=== PATIENT | male | born 1985 | race Caucasian/White ===

== ENCOUNTER 2016-06-05 14:50 | Emergency (ER) | payer OTHER ==
[~2016-06-05] VITALS: Ht 180.3 cm; Wt 102.6 kg
[~2016-06-05 14:50] MED LIST: ADVAIR HFA120 INHAL1 IH; ALBUTEROL SULF8.5 GM IH; CEFTIN500 MG PO; FLEXERIL10 MG PO; INDOCIN25 MG PO; KEFLEX500 MG PO; LYRICA; NAPROSYN500 MG PO; NICOTINE PATCH1 EAC2 TD; NORCO 5/3251 TABLET PO; NORCO 7.5/321 TABLET PO; NYSTATIN15 GM TP; OXYCODONE10 MG PO; PERCOCET 10-651 EACH PO; PERCOCET 7.5-51 EACH PO; PREDNISONE50 MG PO; VENTOLIN HFA18 GM IH; ZOVIRAX800 M1 PO
[2016-06-05 15:18] LABS: HEMATOCRIT 43.5 % (38.0-50.0); MCH 27.9 PG (29.0-34.0); MCHC 32.4 G/DL (30.0-36.0); MCV 86.1 FL (86-99); MEAN PLAT.VOLUME 9.5 uM^3 (9.0-12.4); PLATELET COUNT 263 K/uL (156-360); RBC DIS.WIDTH-CV 13.7 % (11.8-14.6); RBC DIS.WIDTH-SD 43.5 % (39-53); RED BLOOD COUNT 5.05 M/uL (4.00-5.50); WHITE BLOOD COUNT 9.5 K/uL (4.1-10.2)
[2016-06-05 15:28] LABS: CHLORIDE 110 mEq/L (99-109); POTASSIUM 4.4 mEq/L (3.7-5.4); SODIUM 142 mEq/L (136-147)
[2016-06-05 15:30] LABS: GLUCOSE 90 mg/dL (70-99)
[2016-06-05 15:31] LABS: ANION GAP 9 MEQ/L (2-14)
[2016-06-05 15:34] LABS: GFR ESTIMATE (CALCULATED) > 59 mL/min/
[2016-06-05 15:35] LABS: UREA NITROGEN (BUN) 13 mg/dL (9-23)
[2016-06-05] MEDS ORDERED: VENTOLIN HFA18 GM IH (15:57)
[2016-06-05] MEDS ORDERED: ZITHROMAX250 MG PO (15:57)
[2016-06-05] MEDS ORDERED: PREDNISONE20 MG PO (15:57)
[2016-06-05 16:18] VITALS: BP 124/82
== END 2016-06-05 16:30 | disposition home or self-care (01) ==
LOC: EME 14:50
PROVIDERS: Nurse Practitioner Family
DX: J40 Bronchitis, not specified as acute or chronic (principal); F17.200 Nicotine dependence, unspecified, uncomplicated
CPT/HCPCS: 71020; 80048; 85027; 94640; 99281; 99284; J7512

== ENCOUNTER 2017-04-19 04:47 | Emergency (ER) | payer OTHER ==
[~2017-04-19] VITALS: Ht 180.3 cm; Wt 104.5 kg
[~2017-04-19 04:47] MED LIST changes: +PREDNISONE20 MG PO; +ZITHROMAX250 MG PO
[2017-04-19 06:02] LABS: APPEARANCE CLEAR ((CLEAR)); BILIRUBIN NEGATIVE; BLOOD NEGATIVE; COLOR YELLOW ((YELLOW)); GLUCOSE (STRIP) NEGATIVE; KETONES NEGATIVE; LEUKOCYTES NEGATIVE; NITRITE NEGATIVE; PROTEIN (STRIP) NEGATIVE; SPECIFIC GRAVITY 1.016 (1.000-1.030); UCUL ADDED? NO; UROBILINOGEN 0.2 MG/DL (0.2-1.0)
[2017-04-19 06:10] LABS: AMPHETAMINE NEGATIVE (500 ng/mL); BARBITURATES NEGATIVE (200 ng/mL); BENZODIAZEPINES NEGATIVE (150 ng/mL); BUPRENORPHINE NEGATIVE (10 ng/mL); COCAINE PRESUMPTIVE POSITIVE (150 ng/mL); METHADONE NEGATIVE (200 ng/mL); METHAMPHETAMINE NEGATIVE (500 ng/mL); OPIATES (MORPHINE) NEGATIVE (100 ng/mL); OXYCODONE NEGATIVE (100 ng/mL); PHENCYCLIDINE NEGATIVE (25 ng/mL); PROPOXYPHENE NEGATIVE (300 ng/mL); THC CANNABINOIDS PRESUMPTIVE POSITIVE (50 ng/mL); TRICYCLIC ANTIDEPRESSANTS NEGATIVE (300 ng/mL)
[2017-04-19] MEDS ORDERED: ZANAFLEX2 MG PO (06:13)
[2017-04-19] MEDS ORDERED: NORCO 5/3251 TABLET PO (06:13)
[2017-04-19] MEDS ORDERED: LIDODERM 5% P1 PATCH TD (06:13)
[2017-04-19 07:23] LABS: HEMOGLOBIN 13.1 G/DL (12.5-16.6); MCH 29.2 PG (29.0-34.0); MCHC 33.6 G/DL (30.0-36.0); MCV 86.9 FL (86-99); PLATELET COUNT 195 K/uL (156-360); RBC DIS.WIDTH-CV 14.8 % (11.8-14.6); RBC DIS.WIDTH-SD 47.4 % (39-53); RED BLOOD COUNT 4.49 M/uL (4.00-5.50); WHITE BLOOD COUNT 12.5 K/uL (4.1-10.2)
[2017-04-19 07:52] LABS: C-REACTIVE PROTEIN 66.9 MG/L (0-10); CHLORIDE 103 MEQ/L (99-109); CREATININE 0.8 MG/DL (0.6-1.3); GFR ESTIMATE (CALCULATED) > 59 mL/min/ (58.99-99999); GLUCOSE 118 mg/dL (70-99); POTASSIUM 4.3 MEQ/L (3.7-5.4); SODIUM 135 MEQ/L (136-147); UREA NITROGEN (BUN) 12 mg/dL (9-23)
[2017-04-19 08:17] LABS: ERTH.SED.RATE 22 MM/HR (0-15)
[2017-04-19 11:30] VITALS: BP 149/90
[2017-04-20] MEDS ORDERED: TYLENOL PM EX-1 EACH PO (17:30)
== END 2017-04-19 11:48 | disposition home or self-care (01) ==
LOC: EME → EDBD 04:47 → EME 11:48
PROVIDERS: Emergency Medicine
DX: M51.36 Other intervertebral disc degeneration, lumbar region (principal); M43.16 Spondylolisthesis, lumbar region; M48.061 Spinal stenosis, lumbar region without neurogenic claudication; M51.26 Other intervertebral disc displacement, lumbar region; F14.90 Cocaine use, unspecified, uncomplicated; F12.90 Cannabis use, unspecified, uncomplicated; M25.551 Pain in right hip; F17.200 Nicotine dependence, unspecified, uncomplicated
CPT/HCPCS: 70140; 72131; 72158; 80048; 81003; 83605; 84999; 85027; 85652; 86140; 87040; 87077; 87186; 87801; J0696; J3010

== ENCOUNTER 2017-04-20 15:16 | Inpatient (IN) | payer OTHER ==
[~2017-04-20] VITALS: Ht 180.3 cm; Wt 97.5 kg
[~2017-04-20 15:16] MED LIST changes: +LIDODERM 5% P1 PATCH TD; +ZANAFLEX2 MG PO
[2017-04-20] MEDS ORDERED: TYLENOL PM EX-1 EACH PO (17:30)
[2017-04-20 17:45] LABS: INTER. NORMALIZED RATIO 1.3
[2017-04-20 17:46] LABS: CHLORIDE 100 mEq/L (99-109); POTASSIUM 4.2 mEq/L (3.7-5.4); SODIUM 136 mEq/L (136-147)
[2017-04-20 17:47] LABS: PTT 30.5 SEC (25-37)
[2017-04-20 17:48] LABS: GLUCOSE 115 mg/dL (70-99); TOTAL PROTEIN 7.7 g/dL (6.4-8.3)
[2017-04-20 17:49] LABS: BASOPHIL (%) 0.2 % (0-1); EOSINOPHIL (%) 0 % (0-5); HEMATOCRIT 46.1 % (38.0-50.0); HEMOGLOBIN 15.4 G/DL (12.5-16.6); IMMATURE GRANULOCYTE (%) 0.5 % (0.0-0.7); LYMPHOCYTE (%) 4.9 % (15-42); LYMPHOCYTE COUNT 0.8 K/uL (1.0-2.8); MCH 28.6 PG (29.0-34.0); MCHC 33.4 G/DL (30.0-36.0); MCV 85.7 FL (86-99); MONOCYTE (%) 7.4 % (3-12); MONOCYTE COUNT 1.3 K/uL (0-0.8); NEUTROPHIL COUNT 14.8 K/uL (1.8-6.4); PLATELET COUNT 179 K/uL (156-360); RBC DIS.WIDTH-CV 14.9 % (11.8-14.6); RBC DIS.WIDTH-SD 46.9 % (39-53); RED BLOOD COUNT 5.38 M/uL (4.00-5.50); WHITE BLOOD COUNT 17.1 K/uL (4.1-10.2)
[2017-04-20 17:50] LABS: TOTAL BILIRUBIN 0.7 mg/dL (0.0-1.0)
[2017-04-20 17:52] LABS: ALKALINE PHOSPHATASE 73 IU/L (3-129); CREATININE 0.9 mg/dL (0.6-1.3); GFR ESTIMATE (CALCULATED) > 59 mL/min/ (58.99-99999)
[2017-04-20 17:53] LABS: AST (GOT) 11 IU/L (2-34); UREA NITROGEN (BUN) 12 mg/dL (9-23)
[2017-04-20 17:54] LABS: DIRECT BILIRUBIN 0.4 mg/dL (0.0-0.3)
[2017-04-20 17:55] LABS: ALT (GPT) 13 IU/L (3-49); LIPASE 5 U/L (1.0-51.0)
[2017-04-20 17:58] LABS: TROP-I INTERPRETATION NEGATIVE; TROPONIN-I < 0.01 ng/mL (0.0-0.30)
[2017-04-20 18:51] LABS: APPEARANCE CLEAR ((CLEAR)); BILIRUBIN NEGATIVE; BLOOD NEGATIVE; COLOR YELLOW ((YELLOW)); GLUCOSE (STRIP) NEGATIVE; KETONES 5; LEUKOCYTES NEGATIVE; NITRITE NEGATIVE; PROTEIN (STRIP) 30; SPECIFIC GRAVITY 1.023 (1.000-1.030); UCUL ADDED? NO; UROBILINOGEN 0.2 MG/DL (0.2-1.0)
[2017-04-21] VITALS (7 sets, daily range): BP systolic 135–146; BP diastolic 84–95
[2017-04-21 06:56] LABS: HEMATOCRIT 44.6 % (38.0-50.0); HEMOGLOBIN 14.7 G/DL (12.5-16.6); MCH 28.4 PG (29.0-34.0); MCV 86.3 FL (86-99); PLATELET COUNT 176 K/uL (156-360); RBC DIS.WIDTH-CV 14.9 % (11.8-14.6); RBC DIS.WIDTH-SD 47.3 % (39-53); RED BLOOD COUNT 5.17 M/uL (4.00-5.50); WHITE BLOOD COUNT 14.7 K/uL (4.1-10.2)
[2017-04-21 07:11] LABS: CHLORIDE 105 MEQ/L (99-109); CREATININE 0.8 MG/DL (0.6-1.3); GFR ESTIMATE (CALCULATED) > 59 mL/min/ (58.99-99999); GLUCOSE 140 mg/dL (70-99); POTASSIUM 4.5 MEQ/L (3.7-5.4); SODIUM 137 MEQ/L (136-147); UREA NITROGEN (BUN) 16 mg/dL (9-23)
[2017-04-22] VITALS (8 sets, daily range): BP systolic 141–175; BP diastolic 84–96
[2017-04-22 06:42] LABS: HEMATOCRIT 37.1 % (38.0-50.0); MCH 27.8 PG (29.0-34.0); MCHC 32.3 G/DL (30.0-36.0); MCV 85.9 FL (86-99); PLATELET COUNT 202 K/uL (156-360); RBC DIS.WIDTH-SD 47.8 % (39-53); RED BLOOD COUNT 4.32 M/uL (4.00-5.50); WHITE BLOOD COUNT 15.8 K/uL (4.1-10.2)
[2017-04-22 07:11] LABS: CHLORIDE 109 MEQ/L (99-109); CREATININE 0.7 MG/DL (0.6-1.3); GFR ESTIMATE (CALCULATED) > 59 mL/min/ (58.99-99999); GLUCOSE 124 mg/dL (70-99); POTASSIUM 4.2 MEQ/L (3.7-5.4); SODIUM 143 MEQ/L (136-147); UREA NITROGEN (BUN) 17 mg/dL (9-23)
[2017-04-22 07:37] LABS: VANCOMYCIN, TROUGH 2.4 MCG/ML (10-20)
[2017-04-23 03:00] VITALS: BP 171/101
[2017-04-23 04:06] VITALS: BP 132/100
[2017-04-23 07:03] VITALS: BP 140/84
[2017-04-23 11:00] VITALS: BP 161/85
[2017-04-23 14:57] VITALS: BP 140/88
[2017-04-23 23:49] VITALS: BP 141/90
[2017-04-24 06:49] LABS: HEMATOCRIT 34.6 % (38.0-50.0); HEMOGLOBIN 11.1 G/DL (12.5-16.6); MCH 27.8 PG (29.0-34.0); MCHC 32.1 G/DL (30.0-36.0); MCV 86.5 FL (86-99); PLATELET COUNT 213 K/uL (156-360); RBC DIS.WIDTH-CV 15.4 % (11.8-14.6); RBC DIS.WIDTH-SD 49.3 % (39-53); WHITE BLOOD COUNT 9.2 K/uL (4.1-10.2)
[2017-04-24 07:59] VITALS: BP 167/93
[2017-04-24 15:49] VITALS: BP 163/90
[2017-04-24 23:15] VITALS: BP 138/84
[2017-04-25 06:54] LABS: BASOPHIL (%) 0.5 % (0-1); BASOPHIL COUNT 0.1 K/uL (0-0.1); EOSINOPHIL (%) 2.1 % (0-5); EOSINOPHIL COUNT 0.3 K/uL (0-0.3); HEMATOCRIT 36.5 % (38.0-50.0); HEMOGLOBIN 11.8 G/DL (12.5-16.6); IMMATURE GRANULOCYTE (%) 0.7 % (0.0-0.7); LYMPHOCYTE (%) 19.3 % (15-42); LYMPHOCYTE COUNT 2.3 K/uL (1.0-2.8); MCH 28.4 PG (29.0-34.0); MCHC 32.3 G/DL (30.0-36.0); MCV 87.7 FL (86-99); MONOCYTE (%) 6.5 % (3-12); MONOCYTE COUNT 0.8 K/uL (0-0.8); NEUTROPHIL (%) 70.9 % (45-76); NEUTROPHIL COUNT 8.6 K/uL (1.8-6.4); PLATELET COUNT 267 K/uL (156-360); RBC DIS.WIDTH-CV 15.7 % (11.8-14.6); RBC DIS.WIDTH-SD 50.6 % (39-53); RED BLOOD COUNT 4.16 M/uL (4.00-5.50); WHITE BLOOD COUNT 12.1 K/uL (4.1-10.2)
[2017-04-25 07:39] VITALS: BP 126/76
[2017-04-25 07:40] LABS: CHLORIDE 108 MEQ/L (99-109); CREATININE 0.8 MG/DL (0.6-1.3); GFR ESTIMATE (CALCULATED) > 59 mL/min/ (58.99-99999); GLUCOSE 87 mg/dL (70-99); POTASSIUM 4.2 MEQ/L (3.7-5.4); SODIUM 142 MEQ/L (136-147); UREA NITROGEN (BUN) 12 mg/dL (9-23)
[2017-04-25 08:00] VITALS: BP 126/76
[2017-04-25] MEDS ORDERED: TIZANIDINE HCL2 MG PO (09:54)
[2017-04-25] MEDS ORDERED: PERCOCET 10/1 TABLET PO (09:54)
[2017-04-25] MEDS ORDERED: GABAPENTIN300 MG PO (09:54)
[2017-04-25] MEDS ORDERED: CEFADROXIL1 GM PO (11:22)
[2017-04-25] MEDS ORDERED: PREDNISONE5 M1 PO (11:22)
== END 2017-04-25 13:43 | disposition home or self-care (01) | DRG 868 ==
LOC: EME 15:16 → EDOF 20:35 → 5SOUTH 20:35 → ENRESERV 20:36 → 5SOUTH 23:10
PROVIDERS: Emergency Medicine; Hospitalist; Physician Assistant; Physician Assistant Medical
DX: A49.02 Methicillin resistant Staphylococcus aureus infection, unspecified site (principal); R78.81 Bacteremia; M46.20 Osteomyelitis of vertebra, site unspecified; M46.46 Discitis, unspecified, lumbar region; M43.16 Spondylolisthesis, lumbar region; M48.061 Spinal stenosis, lumbar region without neurogenic claudication; F12.90 Cannabis use, unspecified, uncomplicated; F17.210 Nicotine dependence, cigarettes, uncomplicated; G89.29 Other chronic pain; L02.92 Furuncle, unspecified; L73.9 Follicular disorder, unspecified; F14.10 Cocaine abuse, uncomplicated; F11.10 Opioid abuse, uncomplicated; N49.2 Inflammatory disorders of scrotum; K21.9 Gastro-esophageal reflux disease without esophagitis
CPT/HCPCS: 71045; 80048; 80053; 80202; 81003; 82248; 83605; 83690; 84484; 85025; 85027; 85610; 85730; 86140; 87040; 87077; 87186; 87801; 93306; 99202; 99281; 99285; J1170; J1650; J1885; J2270; J2543; J2920; J3370; J7030; J7050; J7512; S0028; S0032

== ENCOUNTER 2017-05-18 10:04 | Inpatient (IN) | payer OTHER ==
[~2017-05-18] VITALS: Ht 180.3 cm; Wt 95.6 kg
[~2017-05-18 10:04] MED LIST changes: +CEFADROXIL1 GM PO; +GABAPENTIN300 MG PO; +PERCOCET 10/1 TABLET PO; +PREDNISONE5 M1 PO; +TIZANIDINE HCL2 MG PO; +TYLENOL PM EX-1 EACH PO
[2017-05-18 11:24] LABS: BASOPHIL (%) 0.3 % (0-1); EOSINOPHIL (%) 0.2 % (0-5); HEMATOCRIT 38.5 % (38.0-50.0); HEMOGLOBIN 12.2 G/DL (12.5-16.6); IMMATURE GRANULOCYTE (%) 0.9 % (0.0-0.7); LYMPHOCYTE (%) 8.3 % (15-42); MCH 27.7 PG (29.0-34.0); MCHC 31.7 G/DL (30.0-36.0); MCV 87.3 FL (86-99); MONOCYTE (%) 5.8 % (3-12); MONOCYTE COUNT 0.7 K/uL (0-0.8); NEUTROPHIL (%) 84.5 % (45-76); NEUTROPHIL COUNT 10.6 K/uL (1.8-6.4); PLATELET COUNT 227 K/uL (156-360); RBC DIS.WIDTH-CV 15.1 % (11.8-14.6); RBC DIS.WIDTH-SD 48.7 % (39-53); RED BLOOD COUNT 4.41 M/uL (4.00-5.50); WHITE BLOOD COUNT 12.5 K/uL (4.1-10.2)
[2017-05-18 11:35] LABS: ALBUMIN 3.7 g/dL (3.2-4.8); CHLORIDE 103 mEq/L (99-109); POTASSIUM 4.2 mEq/L (3.7-5.4); SODIUM 140 mEq/L (136-147)
[2017-05-18 11:37] LABS: GLUCOSE 118 mg/dL (70-99); TOTAL PROTEIN 6.5 g/dL (6.4-8.3)
[2017-05-18 11:39] LABS: TOTAL BILIRUBIN 0.4 mg/dL (0.0-1.0)
[2017-05-18 11:40] LABS: SERUM ETHYL ALCOHOL < 10 mg/dL
[2017-05-18 11:41] LABS: ALKALINE PHOSPHATASE 93 IU/L (3-129); CREATININE 1.3 mg/dL (0.6-1.3); GFR ESTIMATE (CALCULATED) > 59 mL/min/ (58.99-99999)
[2017-05-18 11:42] LABS: AST (GOT) 59 IU/L (2-34); UREA NITROGEN (BUN) 16 mg/dL (9-23)
[2017-05-18 11:44] LABS: ALT (GPT) 54 IU/L (3-49); CREATINE KINASE 113 IU/L (1-294); TOTAL CK 113 IU/L (1-294)
[2017-05-18 11:53] LABS: CK-MB 2.2 ng/mL (0.0-4.9); CKMB RELATIVE INDEX 1.9 (0.0-3.9)
[2017-05-18 13:02] LABS: APPEARANCE SL.HAZY ((CLEAR)); BILIRUBIN NEGATIVE; BLOOD NEGATIVE; COLOR YELLOW ((YELLOW)); GLUCOSE (STRIP) NEGATIVE; KETONES NEGATIVE; LEUKOCYTES NEGATIVE; NITRITE NEGATIVE; PROTEIN (STRIP) 30; UROBILINOGEN 0.2 MG/DL (0.2-1.0)
[2017-05-18 13:15] LABS: BACTERIA NONE SEEN /HPF; EPITHELIAL CELLS RARE /HPF; MUCUS TRACE /LPF; RED BLOOD CELLS 0-5 /HPF (0-5); UCUL ADDED? NO; WHITE BLOOD CELLS 0-5 /HPF (0-5)
[2017-05-18 13:17] LABS: AMPHETAMINE NEGATIVE (500 ng/mL); BARBITURATES NEGATIVE (200 ng/mL); BENZODIAZEPINES NEGATIVE (150 ng/mL); BUPRENORPHINE NEGATIVE (10 ng/mL); COCAINE NEGATIVE (150 ng/mL); METHADONE NEGATIVE (200 ng/mL); METHAMPHETAMINE NEGATIVE (500 ng/mL); OPIATES (MORPHINE) PRESUMPTIVE POSITIVE (100 ng/mL); OXYCODONE NEGATIVE (100 ng/mL); PHENCYCLIDINE NEGATIVE (25 ng/mL); PROPOXYPHENE NEGATIVE (300 ng/mL); THC CANNABINOIDS NEGATIVE (50 ng/mL); TRICYCLIC ANTIDEPRESSANTS NEGATIVE (300 ng/mL)
[2017-05-18 14:41] LABS: TROP-I INTERPRETATION NEGATIVE; TROPONIN-I 0.29 ng/mL (0.0-0.30)
[2017-05-18 17:45] VITALS: BP 124/83
[2017-05-18 19:07] VITALS: BP 137/74
[2017-05-18 20:03] LABS: TROP-I INTERPRETATION NEGATIVE; TROPONIN-I 0.23 ng/mL (0.0-0.30)
[2017-05-18 22:59] VITALS: BP 120/76
[2017-05-19 02:08] LABS: TROP-I INTERPRETATION NEGATIVE; TROPONIN-I 0.19 ng/mL (0.0-0.30)
[2017-05-19 03:44] VITALS: BP 130/79
[2017-05-19 06:43] LABS: HEMATOCRIT 31.5 % (38.0-50.0); MCH 27.1 PG (29.0-34.0); MCHC 31.4 G/DL (30.0-36.0); MCV 86.3 FL (86-99); PLATELET COUNT 187 K/uL (156-360); RBC DIS.WIDTH-CV 15.2 % (11.8-14.6); RBC DIS.WIDTH-SD 48.6 % (39-53); RED BLOOD COUNT 3.65 M/uL (4.00-5.50); WHITE BLOOD COUNT 5.4 K/uL (4.1-10.2)
[2017-05-19 06:54] LABS: C-REACTIVE PROTEIN 30.8 MG/L (0-10); CHLORIDE 110 MEQ/L (99-109); GFR ESTIMATE (CALCULATED) > 59 mL/min/ (58.99-99999); GLUCOSE 92 mg/dL (70-99); POTASSIUM 4.2 MEQ/L (3.7-5.4); SODIUM 140 MEQ/L (136-147); UREA NITROGEN (BUN) 15 mg/dL (9-23)
[2017-05-19 07:30] VITALS: BP 133/72
[2017-05-19 11:47] VITALS: BP 125/75
[2017-05-19 13:43] LABS: HEMOGLOBIN 9.9 G/DL (12.5-16.6)
[2017-05-19 16:46] VITALS: BP 138/90
[2017-05-19 19:54] VITALS: BP 157/89
[2017-05-20 00:01] VITALS: BP 140/80
[2017-05-20 03:44] VITALS: BP 137/88
[2017-05-20 06:44] LABS: HEMATOCRIT 35.3 % (38.0-50.0); HEMOGLOBIN 11.2 G/DL (12.5-16.6); MCH 27.1 PG (29.0-34.0); MCHC 31.7 G/DL (30.0-36.0); MCV 85.5 FL (86-99); PLATELET COUNT 228 K/uL (156-360); RBC DIS.WIDTH-CV 15.1 % (11.8-14.6); RBC DIS.WIDTH-SD 47.5 % (39-53); RED BLOOD COUNT 4.13 M/uL (4.00-5.50); WHITE BLOOD COUNT 5.6 K/uL (4.1-10.2)
[2017-05-20 07:30] VITALS: BP 137/95
[2017-05-20 15:50] VITALS: BP 137/78
[2017-05-20 20:05] VITALS: BP 155/95
[2017-05-20 23:40] VITALS: BP 133/86
[2017-05-21 04:00] VITALS: BP 152/92
[2017-05-21 08:19] VITALS: BP 136/86
[2017-05-21] MEDS ORDERED: CEFADROXIL1 GM PO (11:08)
[2017-05-21 12:13] VITALS: BP 136/86
== END 2017-05-21 15:20 | disposition home or self-care (01) | DRG 917 ==
LOC: EME → EDBD 10:04 → ENRESERV 13:24 → EDOF 13:24 → 5EAST 13:24 → ENRESERV 15:27 → 5EAST 17:30 → ENPENDDIS 05-21 → 5EAST 05-21 15:20
PROVIDERS: Emergency Medicine; Physician Assistant
DX: T40.1X1A Poisoning by heroin, accidental (unintentional), initial encounter (principal); J69.0 Pneumonitis due to inhalation of food and vomit; J96.01 Acute respiratory failure with hypoxia; M46.40 Discitis, unspecified, site unspecified; M46.20 Osteomyelitis of vertebra, site unspecified; R78.81 Bacteremia; B95.61 Methicillin susceptible Staphylococcus aureus infection as the cause of diseases classified elsewhere; E87.2 Acidosis; K21.9 Gastro-esophageal reflux disease without esophagitis; F11.20 Opioid dependence, uncomplicated; F14.10 Cocaine abuse, uncomplicated; F12.10 Cannabis abuse, uncomplicated; F17.200 Nicotine dependence, unspecified, uncomplicated; G89.29 Other chronic pain; Z91.19 Patient's noncompliance with other medical treatment and regimen
CPT/HCPCS: 71045; 80048; 80053; 81003; 82550; 82553; 83605; 84484; 84999; 85025; 85027; 86140; 87040; 93005; 94640; 94640 76; 94799; 99202; 99281; 99285; G0480; J1630; J1644; J1885; J2310; J2543; J3370; J7030; J7050